=== PATIENT | female | born 1965 | race Caucasian/White ===

== ENCOUNTER 2018-05-02 10:08 | Inpatient (IN) | payer MEDICAID ==
[~2018-05-02] VITALS: Ht 162.6 cm; Wt 113.0 kg
[2018-05-02 11:38] LABS: Basophils # (auto) 0.2 uL; Basophils % (auto) 1.3 % (0.0-2.0); Eosinophils # (auto) 0.3 uL; Eosinophils % (auto) 2.7 % (0.0-7.0); Hematocrit 42.7 % (36.0-46.0); Hemoglobin 14.2 g/dL (12.2-16.2); Lymphocytes % (auto) 25.3 % (10.0-50.0); Mean Corpuscular Hgb Conc. 33.1 g/dL (32.0-36.0); Mean Corpuscular Volume 84.6 fL (80.0-100.0); Monocytes % (auto) 8.9 % (0.0-12.0); Neutrophils # (auto) 7.3 uL; Neutrophils % (auto) 61.8 % (37.0-80.0); Platelet Count (auto) 413 10^3/uL (140-450); Red Blood Cells 5.05 10^6/uL (4.0-5.20); Red Cell Distribution Width 14.6 % (11.8-14.3); White Blood Cell 11.8 10^3/uL (4.4-10.8)
[2018-05-02 11:48] LABS: Alanine Aminotransferase 17 U/L (13-56); Albumin 3.8 g/dL (3.4-5.0); Amylase 45 U/L (25-115); Anion Gap 6 (5-15); Blood Urea Nitrogen 20 mg/dL (7-18); Calcium 9.3 mg/dL (8.5-10.1); Carbon Dioxide 27 mmol/L (21-32); Chloride 101 mmol/L (98-107); Glucose 104 mg/dL (74-106); Lipase 121 U/L (73-393); Potassium 3.9 mmol/L (3.5-5.1); Sodium 134 mmol/L (136-145)
[2018-05-02 11:53] LABS: Alkaline Phosphatase 132 U/L (45-117); Aspartate Aminotransferase 12 U/L (15-37); BUN/Creatinine Ratio 24.7; Bilirubin, Total 0.4 mg/dL (0.2-1.0); GFR African American 95 mL/min; GFR Non-African American 78 mL/min; Total Protein 9.7 g/dL (6.4-8.2)
[2018-05-02 12:28] LABS: Urine Bacteria NONE SEEN /hpf (None Seen); Urine Blood Negative /uL (Negative); Urine Specific Gravity 1.012 (1.001-1.035); Urine WBC 1 /hpf (0 - 5)
[2018-05-02] MEDS ORDERED: SODIUM CHLORIDE 0.9% 1,000 ML IV ONE ×2 (14:23)
[2018-05-02] MEDS ORDERED: KETOROLAC TROMETH 30 MG/ML 1ML VIAL IV ONE (14:30)
[2018-05-02] MEDS ORDERED: TAMSULOSIN HYDROCHLORIDE 0.4 MG CAP PO ONE (14:30)
[2018-05-02] MEDS: SODIUM CHLORIDE 0.9% 1,000 ML IV SCH (15:47)
[2018-05-02] MEDS ORDERED: ONDANSETRON HCL 4 MG/2 ML VIAL IV PRN (16:00)
[2018-05-02] MEDS ORDERED: MORPHINE SULF INJ 2 MG/ML SYRINGE 1ML IV PRN ×2 (16:00)
[2018-05-02] MEDS ORDERED: NITROGLYCERIN 0.4 MG SL TAB SL PRN (16:00)
[2018-05-02] MEDS ORDERED: ACETAMINOPHEN 500 MG TAB PO PRN (16:00)
[2018-05-02] MEDS ORDERED: DOCUSATE SOD 100 MG CAP PO PRN (16:00)
[2018-05-02] MEDS: TAMSULOSIN HYDROCHLORIDE 0.4 MG CAP PO SCH (18:04)
[2018-05-02] MEDS: HYDROcodone-ACET 5/325MG TAB PO PRN (20:50)
[2018-05-02 22:15] VITALS: BP 104/53
--- NOTE | 2018-05-02 22:15 | NUR ---
MS admit from ER RAYMONDCHANG admitted to tele/MS after hand off tool received. Patient oriented to primary RN, unit, room, bed, and unit policies regarding patient care and visiting hours. Patient weighed by bedscale and encouraged to call if they need something. All questions and concerns addressed, patient verbalized understanding.
--- NOTE | 2018-05-02 22:45 | NUR ---
Received call from Dr. Hathaway. Patient confirmed Aspirin taken today at home. Per Dr. Lowry, unable to perform Litothripsy tomorrow but will come to see patient. Patient made aware and informed. Patient verbalized understanding.
--- NOTE | 2018-05-02 23:00 | NUR ---
SCD attached on BLE. Patient tolerating well.
[2018-05-02] MEDS: ATORVASTATIN 20 MG TAB PO SCH (23:09)
[2018-05-02] MEDS: METOPROLOL TARTRATE 25 MG TAB PO SCH (23:10)
[2018-05-03] VITALS (8 sets, daily range): BP systolic 98–113; BP diastolic 52–73
[2018-05-03] MEDS: SODIUM CHLORIDE 0.9% 1,000 ML IV SCH ×3 (00:08→14:21)
[2018-05-03] MEDS ORDERED: MELO1TAB73 PO (01:26)
[2018-05-03] MEDS ORDERED: AMLO5TAB13 PO (01:26)
[2018-05-03] MEDS ORDERED: ESCI10TA PO (01:26)
[2018-05-03] MEDS ORDERED: LOSA-46 PO (01:26)
[2018-05-03] MEDS ORDERED: ATOR10TA PO (01:26)
[2018-05-03] MEDS ORDERED: IBUP800T24 PO (01:26)
[2018-05-03] MEDS ORDERED: TRIATAB3 PO (01:26)
[2018-05-03] MEDS ORDERED: ASPI-231 PO (01:26)
[2018-05-03] MEDS ORDERED: MET25T PO (01:26)
[2018-05-03 06:33] LABS: Basophils # (auto) 0.1 uL; Basophils % (auto) 0.6 % (0.0-2.0); Eosinophils # (auto) 0.1 uL; Eosinophils % (auto) 0.9 % (0.0-7.0); Hematocrit 35.4 % (36.0-46.0); Hemoglobin 11.7 g/dL (12.2-16.2); Lymphocytes # (auto) 1.9 uL; Lymphocytes % (auto) 19.7 % (10.0-50.0); Mean Corpuscular Hemoglobin 28.3 pg (28.0-32.0); Mean Corpuscular Volume 85.9 fL (80.0-100.0); Monocytes # (auto) 0.8 uL; Monocytes % (auto) 8.7 % (0.0-12.0); Neutrophils # (auto) 6.7 uL; Neutrophils % (auto) 70.1 % (37.0-80.0); Nucleated Red Blood Cells % 0.1 %; Platelet Count (auto) 326 10^3/uL (140-450); Red Blood Cells 4.12 10^6/uL (4.0-5.20); Red Cell Distribution Width 14.1 % (11.8-14.3); White Blood Cell 9.5 10^3/uL (4.4-10.8)
--- NOTE | 2018-05-03 07:20 | NUR ---
Opening Shift Note Assumed care of patient, awake and alert. No S/S of distress/SOB or pain. Instructed on POC and to call for assist PRN, will continue to monitor for changes Q1hr and PRN.
[2018-05-03] MEDS: ASPirin 81 mg TAB PO SCH (08:23)
[2018-05-03] MEDS: cefTRIAXone 1GM/50ML D5W 50 ML IV SCH (09:36)
[2018-05-03] MEDS: HYDROcodone-ACET 5/325MG TAB PO PRN (09:37)
[2018-05-03] MEDS: CITALOPRAM HYDROBR 20 MG TAB PO SCH (09:38)
[2018-05-03] MEDS: PANTOPRAZOLE 40 MG/10 ML VIAL IV SCH (09:38)
[2018-05-03] MEDS: amLODIPine BESYLATE 5 MG TAB PO SCH (09:42)
[2018-05-03] MEDS: METOPROLOL TARTRATE 25 MG TAB PO SCH ×2 (09:42→22:43)
[2018-05-03] MEDS: LOSARTAN POTASSIUM 25 MG TAB PO SCH (09:42)
[2018-05-03] MEDS: TAMSULOSIN HYDROCHLORIDE 0.4 MG CAP PO SCH (17:56)
--- NOTE | 2018-05-03 20:35 | NUR ---
Opening Shift Note Assumed care of patient, awake and alert. No S/S of distress/SOB. Patient reports having slight pain to her lower back after she consumes meals. Insructed on POC and to call for assist PRN, will continue to monitor for changes Q1hr and PRN.
[2018-05-03] MEDS: ATORVASTATIN 20 MG TAB PO SCH (22:42)
[2018-05-04] MEDS: SODIUM CHLORIDE 0.9% 1,000 ML IV SCH ×3 (02:00→16:06)
[2018-05-04 05:00] VITALS: BP 134/58
[2018-05-04 08:00] VITALS: BP 97/50
--- NOTE | 2018-05-04 08:00 | NUR ---
ASSESSMENT NOTE PT IS ALERT ORIENTED X4, SITTING AT THE SIDE OF THE BED, NO DISTRESS NOTED, PAIN 0/10, CALL LIGHT WITHIN REACH.
[2018-05-04 09:00] VITALS: BP 115/53
[2018-05-04] MEDS: cefTRIAXone 1GM/50ML D5W 50 ML IV SCH (09:05)
[2018-05-04] MEDS: PANTOPRAZOLE 40 MG/10 ML VIAL IV SCH (09:05)
[2018-05-04] MEDS: CITALOPRAM HYDROBR 20 MG TAB PO SCH (09:06)
[2018-05-04] MEDS: ASPirin 81 mg TAB PO SCH (09:06)
[2018-05-04] MEDS: LOSARTAN POTASSIUM 25 MG TAB PO SCH (09:06)
[2018-05-04] MEDS: amLODIPine BESYLATE 5 MG TAB PO SCH (09:07)
[2018-05-04] MEDS: METOPROLOL TARTRATE 25 MG TAB PO SCH (09:07)
--- NOTE | 2018-05-04 10:55 | NUR ---
IV removal IV DC'd with sterile technique, catheter fully intact. Pressure dressing applied to site. Patient tolerated procedure well. Discharged with aftercare instructions per MD. NOTE:
--- NOTE | 2018-05-04 11:00 | NUR ---
IV insertion IV access obtained, via clean sterile technique by inserting 22 gauge catheter at after attempt(s). IV secured properly. No trauma to site. Patient tolerated procedure well.
[2018-05-04 13:00] VITALS: BP 128/56
[2018-05-04 13:30] VITALS: BP 115/53
--- NOTE | 2018-05-04 15:02 | NUR ---
PT IS SITTING AT THE SIDE OF THE BED, LOOKING FORWARD TO GO HOME, MADE AWARE THAT WE ARE WAITING FOR DR GONZALES
--- NOTE | 2018-05-04 16:45 | NUR ---
FAMILY PT'S FATHER AT BED SIDE TO CHECK ON HIS DAUGHTER.
[2018-05-04 17:00] VITALS: BP 122/57
[2018-05-04] MEDS: TAMSULOSIN HYDROCHLORIDE 0.4 MG CAP PO SCH (17:50)
--- NOTE | 2018-05-04 17:56 | NUR ---
PT'S FATHER LEFT HOME, SAID TO CALL HIM WHEN HIS DAUGHTER GET DISCHARGE
--- NOTE | 2018-05-04 18:21 | NUR ---
DR GONZALES IS HERE FOLLOWING UP ON PT
[2018-05-04] MEDS ORDERED: LEVO500T21 PO (18:36)
--- NOTE | 2018-05-04 19:00 | NUR ---
ALL DISCHARGE INSTRUCTION GIVEN TO PT , VERBALIS UNDERSTANDING, PT AWAITIN FOR HER FATHER TO PICK HER UP.
== END 2018-05-04 16:25 | disposition home or self-care (01) | DRG 465 ==
LOC: ER 10:08 → OVERFLOW 15:47 → TELE-EAST 21:52 → EAST 05-03 01:07
PROVIDERS: ADMIT Nurse Practitioner Acute Care; ATTEND Nurse Practitioner Acute Care
DX: N20.0 Calculus of kidney (principal); E87.1 Hypo-osmolality and hyponatremia; N39.0 Urinary tract infection, site not specified; E66.9 Obesity, unspecified; N28.1 Cyst of kidney, acquired; E78.00 Pure hypercholesterolemia, unspecified; I10 Essential (primary) hypertension; K59.00 Constipation, unspecified; E78.5 Hyperlipidemia, unspecified; I69.354 Hemiplegia and hemiparesis following cerebral infarction affecting left non-dominant side; Z68.41 Body mass index [BMI] 40.0-44.9, adult
CPT/HCPCS: 36415; 71046; 72100; 74176; 80053; 81001; 82150; 83036; 83690; 84443; 84484; 85025; 87086; 93005; 96361; 96365; 96375; C9113; G0378; J0696; J1885; J2405

== ENCOUNTER 2018-10-24 11:22 | Emergency (ER) | payer MEDICAID ==
[~2018-10-24] VITALS: Ht 162.6 cm; Wt 97.5 kg
[~2018-10-24 11:22] MED LIST: AMLO5TAB15 PO; ASPI-231 PO; ATOR10TA PO; ESCI10TA PO; LEVO500T21 PO; LOSA-69 PO; MET25T PO; TRIATAB3 PO
[2018-10-24 13:20] LABS: Basophils # (auto) 0.1 uL; Basophils % (auto) 1.3 % (0.0-2.0); Eosinophils # (auto) 0.2 uL; Eosinophils % (auto) 2.2 % (0.0-7.0); Hematocrit 39.9 % (36.0-46.0); Hemoglobin 13.5 g/dL (12.2-16.2); Lymphocytes # (auto) 2.4 uL; Lymphocytes % (auto) 21.2 % (10.0-50.0); Mean Corpuscular Hemoglobin 29.3 pg (28.0-32.0); Mean Corpuscular Hgb Conc. 33.8 g/dL (32.0-36.0); Mean Corpuscular Volume 86.5 fL (80.0-100.0); Monocytes # (auto) 1.1 uL; Monocytes % (auto) 9.8 % (0.0-12.0); Neutrophils # (auto) 7.5 uL; Neutrophils % (auto) 65.5 % (37.0-80.0); Platelet Count (auto) 394 10^3/uL (140-450); Red Blood Cells 4.61 10^6/uL (4.0-5.20); Red Cell Distribution Width 15.1 % (11.8-14.3); White Blood Cell 11.4 10^3/uL (4.4-10.8)
[2018-10-24 13:41] LABS: Alanine Aminotransferase 21 U/L (13-56); Albumin 3.6 g/dL (3.4-5.0); Anion Gap 5 (5-15); Blood Alcohol < 3.0 mg/dL (0-5); Blood Urea Nitrogen 26 mg/dL (7-18); Calcium 9.1 mg/dL (8.5-10.1); Carbon Dioxide 31 mmol/L (21-32); Chloride 100 mmol/L (98-107); Glucose 102 mg/dL (74-106); Potassium 3.6 mmol/L (3.5-5.1); Sodium 136 mmol/L (136-145)
[2018-10-24 13:44] LABS: Alkaline Phosphatase 126 U/L (45-117); Aspartate Aminotransferase 17 U/L (15-37); BUN/Creatinine Ratio 29.5; Bilirubin, Total 0.5 mg/dL (0.2-1.0); GFR African American 86 mL/min; GFR Non-African American 71 mL/min; Total Protein 8.9 g/dL (6.4-8.2)
[2018-10-24 14:28] LABS: Alcohol, Urine < 3.0 mg/dL (0-5); Amphetamine Screen, Urine NEGATIVE (NEGATIVE); Barbiturate Scree,Urine NEGATIVE (NEGATIVE); Benzodiazephine Screen, Urine NEGATIVE (NEGATIVE); Cannabinoid Screen, Urine NEGATIVE (NEGATIVE); Cocaine Screen, Urine NEGATIVE (NEGATIVE); Opiate Scree,Urine NEGATIVE (NEGATIVE); Phencyclidine Screen, Urine NEGATIVE (NEGATIVE)
[2018-10-24] MEDS ORDERED: SODIUM CHLORIDE 0.9% 1,000 ML IV ONE (15:15)
[2018-10-24 16:49] VITALS: BP 119/55
== END 2018-10-24 17:44 | disposition home or self-care (01) ==
LOC: ER 11:22
DX: F41.9 Anxiety disorder, unspecified (principal); F32.9 Major depressive disorder, single episode, unspecified; E78.5 Hyperlipidemia, unspecified; I10 Essential (primary) hypertension; Z98.51 Tubal ligation status; Z86.73 Personal history of transient ischemic attack (TIA), and cerebral infarction without residual deficits
CPT/HCPCS: 36415; 80053; 80307; 80320; 85025